=== PATIENT | female | born 1935 | race Caucasian/White ===

== ENCOUNTER 2017-08-22 15:14 | Inpatient (IN) | payer MEDICARE ==
[~2017-08-22] VITALS: Ht 157.5 cm; Wt 61.2 kg
--- NOTE | 2017-08-22 15:20 | NUR ---
[id number] FROM HOME FOR S/P FALL, PT SAID HER KNESS GAVE OUT, ON THE GROUND X 2 HRS, NAD NOTED, VSS, RESP EVEN AND UNLABORED, PT WAS PUT ON GOWN AND MONITOR, AT .
[2017-08-22] MEDS ORDERED: IV NS 0.9% 1,000 ML BAG IV ONE (15:30)
[2017-08-22 15:38] LABS: BASOPHILS % (AUTO) 0.3 % (0.0-2.0); EOSINOPHILS % (AUTO) 0.1 % (0.0-6.0); HEMATOCRIT 37 % (33-45); HEMOGLOBIN 12.6 g/dL (11.5-14.8); LYMPHOCYTES # (AUTO) 0.5 /CMM (0.8-4.8); LYMPHOCYTES % (AUTO) 10.2 % (20.0-44.0); MEAN CORPUSCULAR HEMOGLOBIN 30 PG (26.0-33.0); MEAN CORPUSCULAR HGB CONC 34 g/dl (31.0-36.0); MEAN CORPUSCULAR VOLUME 89 fL (82-100); MONOCYTES # (AUTO) 0.3 /CMM (0.1-1.30); MONOCYTES % (AUTO) 6.7 % (2.0-12.0); NEUTROPHILS # (AUTO) 3.9 /CMM (1.8-8.9); NEUTROPHILS % (AUTO) 82.7 % (43.0-81.0); PLATELET COUNT (AUTO) 194 /CMM (150-450); RDW COEFFICIENT OF VARIATION 13.6 (11.5-15.0); WHITE BLOOD COUNT (AUTO) 4.7 K/uL (4.3-11.0)
[2017-08-22 15:52] LABS: CARBON DIOXIDE 25 mmol/L (21-32); CHLORIDE 103 mmol/L (98-107); CREATININE 0.6 mg/dL (0.6-1.3); GLUCOSE 102 mg/dL (74-106); POTASSIUM 3.7 mmol/L (3.5-5.1); SODIUM SERUM 137 mmol/L (136-145); UREA NITROGEN, BLOOD 19 mg/dL (7-18)
[2017-08-22 15:57] LABS: ALANINE AMINOTRANSFERASE 19 U/L (12-78); ALBUMIN 3.7 g/dL (3.4-5.0); ALKALINE PHOSPHATASE 47 U/L (46-116); ASPARTATE AMINOTRANSFERASE 38 U/L (15-37); BILIRUBIN,DIRECT 0.1 mg/dL (0.0-0.2); BILIRUBIN,TOTAL 0.4 mg/dL (0.2-1.0); TOTAL PROTEIN, SERUM 8.5 g/dL (6.4-8.2)
[2017-08-22 15:58] LABS: TROPONIN I < 0.017 ng/mL (0.00-0.056)
[2017-08-22 16:07] LABS: INR 1.02 (0.85-1.15)
[2017-08-22] MEDS ORDERED: LEVO75TA7 PO (16:25)
[2017-08-22] MEDS ORDERED: GABA600T2 PO (16:29)
[2017-08-22] MEDS ORDERED: TRAV5DRO EACHEYE (16:29)
[2017-08-22] MEDS ORDERED: CARB-93 PO (16:29)
[2017-08-22] MEDS ORDERED: ZOLP5TAB2 PO (16:29)
[2017-08-22] MEDS ORDERED: ALEN70TA3 PO (16:29)
--- NOTE | 2017-08-22 16:55 | NUR ---
PT STILL UNABLE TO URINATE, WILL TRY AGAIN AFTER IV FLUIDS IN 15 MINUTES.
--- NOTE | 2017-08-22 17:20 | NUR ---
REPORT GIVEN TO VIKTORIYA BLACKWELL
--- NOTE | 2017-08-22 17:25 | NUR ---
URINE SENT TO LAB
[2017-08-22 17:42] LABS: APPEARANCE,URINE Slightly Cloudy (CLEAR); BILIRUBIN,URINE Negative (NEGATIVE); BLOOD, URINE Small Ery/uL (NEGATIVE); COLOR,URINE Light yellow (YELLOW); KETONES,URINE 40 (NEGATIVE); LEUKOCYTE ESTERASE ,URINE Negative (NEGATIVE); NITRITE, URINE Negative (NEGATIVE); PROTEIN,URINE 30 mg/dl (NEGATIVE); UGLUCOSE Negative (NEGATIVE); UROBILINOGEN,URINE 0.2 EU/dL (0.2)
--- NOTE | 2017-08-22 17:53 | NUR ---
PAGED EPIC FOR PANEL
[2017-08-22 17:54] LABS: BACTERIA,URINE Moderate /HPF (None Seen); WBC,URINE NONE SEEN /HPF (0-3)
[2017-08-22 17:55] LABS: SQUAMOUS EPITHELIAL CELL,UR Few /HPF (None Seen)
[2017-08-22] MEDS ORDERED: OSELTAMIVIR PHOSPHATE 75 MG CAPSULE PO ONE (18:00)
[2017-08-22] MEDS ORDERED: OSELTAMIVIR PHOSPHATE 75 MG CAPSULE ONE (18:03)
[2017-08-22] MEDS ORDERED: ZOLPIDEM TARTRATE 5 MG TABLET PO PRN ×2 (18:30→19:00)
[2017-08-22] MEDS ORDERED: ACETAMINOPHEN 325 MG TABLET PO PRN (19:00)
[2017-08-22] MEDS ORDERED: Z GUARD REMEDY 2 OZ OINT TP PRN (19:00)
[2017-08-22] MEDS ORDERED: MAGNESIUM HYDROXIDE 30 ML UDC PO PRN (19:00)
[2017-08-22] MEDS ORDERED: ONDANSETRON HCL/PF 4 MG/2 ML VIAL IVP PRN (19:00)
[2017-08-22] MEDS ORDERED: MAG HYDROX/AL HYDROX/SIMETH 30 ML UDC PO PRN (19:00)
[2017-08-22] MEDS ORDERED: HYDROCODONE/APAP 5/325MG 1 EACH TABLET PO PRN (19:00)
--- NOTE | 2017-08-22 19:30 | NUR ---
RN OPENING NOTES PATIENT IS IN BED, ALERT AND ORIENTED X4. VS STABLE. NO C/O PAIN AT THIS TIME. RESPIRATIONS EVEN AND UNLABORED. NO SOB NOTED. IV ACCESS ON LEFT AC PATENT AND INTACT, NO REDNESS OR INFILTRATION NOTED. TELE MONITOR IS IN PLACE, SR 89 BPM. BED IN LOW AND LOCKED POSITION, SIDE RAILS X2. CALL LIGHT WITHIN EASY REACH. WILL CONTINUE TO MONITOR AND ACCESS DURING THE SHIFT.
[2017-08-22] MEDS: CARBIDOPA/LEVODOPA 25/100 MG 1 UDTAB PO SCH ×2 (19:52→22:15)
[2017-08-22] MEDS: GABAPENTIN 300 MG CAPSULE PO SCH (19:52)
[2017-08-22] MEDS: LEVOTHYROXINE SODIUM 75 MCG TABLET PO SCH (19:54)
[2017-08-22 20:00] VITALS: BP 125/72
[2017-08-22 20:50] LABS: CREATINE KINASE MB 1.8 ng/mL (0-3.6)
[2017-08-22] MEDS ORDERED: LATANOPROST EYE DROP 0.005% 2.5 ML BOTTLE EACHEYE SCH (22:00)
[2017-08-22] MEDS: IV NS 0.9% 1,000 ML IV PRN (22:15)
[2017-08-23] VITALS: BP 119/68
[2017-08-23 04:00] VITALS: BP 125/72
[2017-08-23 04:11] VITALS: BP 125/72
--- NOTE | 2017-08-23 06:50 | NUR ---
RN CLOSING NOTES PATIENT IS SLEEPING IN BED, EASY TO AROUSE, ALERT AND ORIENTED X4. VS STABLE. NO C/O PAIN AT THIS TIME. RESPIRATIONS EVEN AND UNLABORED. NO SOB NOTED. IV ACCESS ON LEFT AC PATENT AND INTACT, INFUSING NS AT 75 ML/HR. NO REDNESS OR INFILTRATION NOTED. TELE MONITOR IS IN PLACE, SR 77 BPM. ALL NEEDS ARE MET AND MEDICATIONS GIVEN PER MD ORDER. BED IN LOW AND LOCKED POSITION, SIDE RAILS X2. CALL LIGHT WITHIN EASY REACH. WILL ENDORSE TO RN DAY SHIFT FOR LUDY.
[2017-08-23 06:58] LABS: BASOPHILS % (AUTO) 0.5 % (0.0-2.0); EOSINOPHILS % (AUTO) 0.1 % (0.0-6.0); HEMATOCRIT 31 % (33-45); HEMOGLOBIN 10.8 g/dL (11.5-14.8); LYMPHOCYTES # (AUTO) 0.8 /CMM (0.8-4.8); MEAN CORPUSCULAR HEMOGLOBIN 31 PG (26.0-33.0); MEAN CORPUSCULAR HGB CONC 35 g/dl (31.0-36.0); MEAN CORPUSCULAR VOLUME 89 fL (82-100); MONOCYTES # (AUTO) 0.4 /CMM (0.1-1.30); MONOCYTES % (AUTO) 11.6 % (2.0-12.0); NEUTROPHILS % (AUTO) 61.8 % (43.0-81.0); PLATELET COUNT (AUTO) 158 /CMM (150-450); RDW COEFFICIENT OF VARIATION 14.6 (11.5-15.0); RED BLOOD CELL COUNT(AUTO) 3.51 MIL/uL (4.0-5.2); WHITE BLOOD COUNT (AUTO) 3.2 K/uL (4.3-11.0)
[2017-08-23] MEDS: CARBIDOPA/LEVODOPA 25/100 MG 1 UDTAB PO SCH ×3 (06:59→15:19)
[2017-08-23 07:14] LABS: ALANINE AMINOTRANSFERASE 24 U/L (12-78); ALKALINE PHOSPHATASE 37 U/L (46-116); ASPARTATE AMINOTRANSFERASE 30 U/L (15-37); BILIRUBIN,TOTAL 0.4 mg/dL (0.2-1.0); CALCIUM, SERUM 8.3 mg/dL (8.5-10.1); CARBON DIOXIDE 24 mmol/L (21-32); CHLORIDE 106 mmol/L (98-107); CREATININE 0.6 mg/dL (0.6-1.3); GLUCOSE 96 mg/dL (74-106); PHOSPHORUS 2.9 mg/dL (2.5-4.9); POTASSIUM 3.5 mmol/L (3.5-5.1); SODIUM SERUM 140 mmol/L (136-145); TOTAL PROTEIN, SERUM 7.1 g/dL (6.4-8.2); UREA NITROGEN, BLOOD 15 mg/dL (7-18)
[2017-08-23 07:23] LABS: CHOLESTEROL 134 mg/dL (<200); HDL CHOLESTEROL 55 mg/dL (40-60); LDL 77 mg/dL (0-99); THYROID STIMULATING HORMONE 1.949 uIU/mL (0.358-3.74); TRIGLYCERIDES 39 mg/dL (30-150)
[2017-08-23 08:00] VITALS: BP 137/80
[2017-08-23] MEDS: GABAPENTIN 300 MG CAPSULE PO SCH ×2 (08:01→11:57)
[2017-08-23] MEDS: LEVOTHYROXINE SODIUM 75 MCG TABLET PO SCH (08:01)
--- NOTE | 2017-08-23 08:05 | NUR ---
OUTSIDE CUTTER NOTES A/O X4, SINUS RHYTHM HR 78 IN THE MONITOR, DENIES PAIN. RIGHT AC [id number] AND INTACT, IVF NS INFUSING AT 75ML/HR. DUE MEDS GIVEN AND TAKEN WITHOUT DIFFICULTY. CALL LIGHT WITHIN REACH. WILL CONT TO MONITOR.
[2017-08-23] MEDS: IV NS 0.9% 1,000 ML IV PRN (13:44)
--- NOTE | 2017-08-23 16:40 | NUR ---
Patient is alert and pleasant,she lives alone locally. She is ambulatory and independent with adl's.No DME or homehealth reported. Has good family support. DC home today, dtr is providing transportation. Addendum: 08/23/17 at 1727 by PEARL KLINE RN Amended: Links added.
--- NOTE | 2017-08-23 16:41 | NUR ---
MS RN DISCHARGED PATIENT HAS BEEN CLEARED FOR DC HOME BY . AMBULATORY WITH ASSIST, AFEBRILE DURING THE SHIFT, GOOD APPETITE, NO SOB. SKIN INTACT, VOIDED WITHOUT DIFFICULTY. SEEN BY DR. VILLASEÑOR/NEURO AND CLEARED FOR DC. DISCHARGE INSTRUCTION GIVEN TO THE PATIENT, VERBALIZED UNDERSTANDING. BELONGINGS CHECKED AND SEND UPON DC. PATIENT LEFT HOSP IN STABLE CONDITION VIA PRIVATE CAR, ACCOMPANIED BY DAUGHTER.
[2017-08-28] MEDS ORDERED: ALENDRONATE 70 MG TABLET PO SCH (07:30)
== END 2017-08-23 16:45 | disposition home or self-care (01) | DRG 74 ==
LOC: ER 15:18 → TELE 18:00 → MED 08-23 10:14
PROVIDERS: ADMIT Internal Medicine; ATTEND Internal Medicine
DX: G90.8 Other disorders of autonomic nervous system (principal); G20 Parkinson's disease; E86.0 Dehydration; W19.XXXA Unspecified fall, initial encounter; E03.9 Hypothyroidism, unspecified; Z79.83 Long term (current) use of bisphosphonates; Y92.9 Unspecified place or not applicable
CPT/HCPCS: 36415; 71045-TC; 80048-TC; 80053-TC; 80061-TC; 80076-TC; 81000-TC; 82550-TC; 82553-TC; 83605-TC; 83735-TC; 84100-TC; 84443-TC; 84484-TC; 85025-TC; 85730-TC; 87040-TC; 87081-TC; 87086-TC; 87400; 93307-TC; J7030